=== PATIENT | male | born 1990 | race Two or more races ===

== ENCOUNTER 2021-04-13 21:06 | Emergency (ER) | payer MEDICAID ==
[~2021-04-13] VITALS: Ht 170.2 cm; Wt 90.7 kg
--- NOTE | 2021-04-13 22:17 | NUR ---
MD Gee in room to do MSE.
[2021-04-13] MEDS ORDERED: OXYC-128 PO (22:40)
[2021-04-13 22:45] VITALS: BP 142/88
--- NOTE | 2021-04-13 22:46 | NUR ---
Patient discharged to home in stable condition. Written and verbal after care instructions given. Patient verbalizes understanding of instructions. Stressed follow up or return to ER for worsening s/s. Patient ambulates with steady gait, V/S stable, given paper Rx, and left with all personal bleongings.
== END 2021-04-13 22:46 | disposition home or self-care (01) ==
LOC: ER 21:06
DX: J02.9 Acute pharyngitis, unspecified (principal); I10 Essential (primary) hypertension; Z88.3 Allergy status to other anti-infective agents
CPT/HCPCS: A4663

== ENCOUNTER 2022-04-30 23:46 | Inpatient (IN) | payer MEDICAID ==
[~2022-04-30] VITALS: Ht 167.6 cm; Wt 81.6 kg
[~2022-04-30 23:46] MED LIST: OXYC-128 PO
[2022-05-01] MEDS ORDERED: ETOMIDATE 20 MG/10 ML VIAL IV ONE
[2022-05-01] MEDS ORDERED: VANCOMYCIN IV 1,000 MG in IV DEXTROSE 5% 250 ML IV ONE ×2
[2022-05-01] MEDS ORDERED: IV NORMAL SALINE 1000 ML BAG IV ONE
[2022-05-01] MEDS ORDERED: ONDANSETRON 4 MG/2 ML VIAL IV ONE
[2022-05-01] MEDS ORDERED: CEFTRIAXONE 1 G in IV DEXTROSE 5% 50 ML IV ONE ×2
--- NOTE | 2022-05-01 | NUR ---
Dr. Durbin at bedside. NAD noted. MSE in progress.
--- NOTE | 2022-05-01 | NUR ---
Patient biba. A/Ox2.
[2022-05-01] MEDS ORDERED: VANCOMYCIN IV 200 ML ONE (00:12)
[2022-05-01] MEDS ORDERED: CEFTRIAXONE /D5W 50ML IVPB **ER PYXIS IV ONE (00:12)
[2022-05-01] MEDS ORDERED: ONDANSETRON 4 MG/2 ML VIAL ONE ×3 (00:13→13:26)
[2022-05-01] MEDS ORDERED: HYDROMORPHONE 1 MG/1 ML DISP.SYRIN IV ONE ×2 (00:30→02:00)
[2022-05-01] MEDS ORDERED: HYDROMORPHONE 1 MG/1 ML DISP.SYRIN ONE ×2 (00:34→04:00)
[2022-05-01] MEDS ORDERED: IV D5W-0.45% NS +20 KCL 1,000 ML IV ONE ×2 (00:42→00:45)
--- NOTE | 2022-05-01 01:00 | NUR ---
Girl friend at bedside.
[2022-05-01] MEDS ORDERED: IV D5 1/2 NS 1000 ML 1,000 ML IV PRN (01:15)
[2022-05-01] MEDS ORDERED: ONDANSETRON 4 MG/2 ML VIAL IV PRN (01:15)
[2022-05-01] MEDS ORDERED: ACETAMINOPHEN 325 MG TABLET PO PRN (01:15)
[2022-05-01] MEDS ORDERED: MAGNESIUM HYDROXIDE 30 ML LIQUID UDC PO PRN (01:15)
[2022-05-01 01:26] LABS: HEMATOCRIT 40.1 % (36.7-47.1); MEAN CORPUSCULAR HEMOGLOBIN 31.8 uug (23.8-33.4); MEAN CORPUSCULAR VOLUME 91.4 fL (73.0-96.2); PLATELET COUNT (AUTO) 220 K/uL (152-348)
[2022-05-01 01:27] LABS: CREATININE 1.4 mg/dL (0.6-1.3); POTASSIUM 3.4 mmol/L (3.5-5.1)
[2022-05-01 01:33] LABS: BILIRUBIN,DIRECT 0.1 mg/dL (0.0-0.2); BILIRUBIN,TOTAL 0.3 mg/dL (0.2-1.0); TOTAL PROTEIN, SERUM 6.8 g/dL (6.4-8.2)
--- NOTE | 2022-05-01 02:00 | NUR ---
Report given to Farhana DOVE.
[2022-05-01] MEDS: HYDROMORPHONE 1 MG/1 ML DISP.SYRIN IV PRN ×2 (04:05→08:10)
--- NOTE | 2022-05-01 05:50 | NUR ---
Notified by 3rd fl (Med Surg) unit that a bed is available for patient.
--- NOTE | 2022-05-01 06:15 | NUR ---
Pt. admitted to Med Surg room 322, under care of Dr. Tiwari. Belongs List completed Crystal DOVE aware of patients arrival.
[2022-05-01 06:30] VITALS: BP 164/86
--- NOTE | 2022-05-01 06:57 | NUR ---
Admitted to [facility] in stable condition. No distress noted. Splint noted on left arm. IV site intact. Pt able to make needs known. Kept NPO. Will endorse to day shift.
--- NOTE | 2022-05-01 09:57 | NUR ---
Patient brought down for surgery. Report given to Nalini DOVE of Surgical Unit. Consent signed.
[2022-05-01] MEDS ORDERED: FENTANYL CITRATE 100 MCG/2 ML AMPUL ONE (10:04)
[2022-05-01] MEDS ORDERED: HYDROMORPHONE 2 MG/1 ML DISP.SYRIN ONE (10:04)
[2022-05-01] MEDS ORDERED: MIDAZOLAM HCL 2 MG/2 ML VIAL ONE (10:04)
[2022-05-01] MEDS ORDERED: FAMOTIDINE. 20 MG/2 ML VIAL IV ONE (10:04)
[2022-05-01] MEDS ORDERED: ROCURONIUM BROMIDE 50 MG/5 ML VIAL ONE (10:05)
[2022-05-01] MEDS ORDERED: VANCOMYCIN 1000 MG VIAL ONE (11:09)
[2022-05-01] MEDS ORDERED: BUPIVACAINE/EPI PF 0.5% 10 ML VIAL ONE (11:09)
[2022-05-01] MEDS ORDERED: VANCOMYCIN IV 1,000 MG in IV DEXTROSE 5% 250 ML IV SCH (12:00)
[2022-05-01] MEDS ORDERED: GLYCOPYRROLATE 0.2 MG/ML VIAL ONE ×3 (13:11)
[2022-05-01] MEDS ORDERED: PROPOFOL 200 MG/20 ML BOTTLE ONE (13:11)
[2022-05-01] MEDS ORDERED: METOCLOPRAMIDE HCL 10 MG/2 ML VIAL ONE (13:11)
[2022-05-01] MEDS ORDERED: CEFAZOLIN 1 G VIAL ONE ×2 (13:11)
[2022-05-01] MEDS ORDERED: KETOROLAC TROMETHAMINE 30 MG INJ ONE ×2 (13:11)
[2022-05-01] MEDS ORDERED: NEOSTIGMINE METHYLSULFATE 10 MG/10 ML VIAL ONE (13:11)
[2022-05-01] MEDS ORDERED: LIDOCAINE-MPF 2% 5 ML VIAL ONE (13:11)
[2022-05-01] MEDS ORDERED: hydrALAZINE HCL 20 MG/1 ML VIAL ONE (13:22)
--- NOTE | 2022-05-01 13:57 | NUR ---
Patient back on unit.
[2022-05-01] MEDS: IV D5W-0.45% NS +20 KCL 1,000 ML IV PRN (14:13)
[2022-05-01] MEDS: VANCOMYCIN IV 1,000 MG in IV DEXTROSE 5% 250 ML IV SCH (14:13)
[2022-05-01 16:38] VITALS: BP 134/71
--- NOTE | 2022-05-01 16:54 | NUR ---
Patient awake from nap with complaints of nausea. Few episodes of vomiting, but patient feels well overall. Zofran given to patient for nausea and vomiting means. Patient's significant other at bed side. Vitals stable. No complaints of pain.
--- NOTE | 2022-05-01 18:25 | NUR ---
Patient tolerated care well throughout shift with minimal complaints of pain or distress. Nausea managed through medicinal interventions. Patient resting comfortably in bed with significant other at bed side. IV site patent and intact. Comfort measures provided. Surgical site of both left arm and right pinky managed with pain medication and ice at site. Bed left in lowest position with call light within reach. Will endorse information to PM nurse.
[2022-05-01 20:28] VITALS: BP 151/62
[2022-05-01] MEDS ORDERED: CEFTRIAXONE 2 G in IV DEXTROSE 5% 100 ML IV SCH (21:00)
[2022-05-01] MEDS: MORPHINE SULFATE 4 MG/1 ML DISP.SYRIN IV PRN (22:16)
[2022-05-02] MEDS: MORPHINE SULFATE 4 MG/1 ML DISP.SYRIN IV PRN (01:19)
[2022-05-02] MEDS: VANCOMYCIN IV 1,000 MG in IV DEXTROSE 5% 250 ML IV SCH (02:51)
[2022-05-02 04:00] VITALS: BP 168/65
[2022-05-02] MEDS ORDERED: CEFTRIAXONE 2 G in IV DEXTROSE 5% 100 ML IV SCH (04:00)
[2022-05-02] MEDS: HYDROMORPHONE 1 MG/1 ML DISP.SYRIN IV PRN ×3 (04:36→21:04)
[2022-05-02 07:09] LABS: HEMATOCRIT 40.5 % (36.7-47.1); MEAN CORPUSCULAR VOLUME 91.2 fL (73.0-96.2); PLATELET COUNT (AUTO) 175 K/uL (152-348)
[2022-05-02 07:38] LABS: CREATININE 0.9 mg/dL (0.6-1.3); MAGNESIUM 2.1 mg/dL (1.8-2.4); PHOSPHOROUS 2.2 mg/dL (2.5-4.9); POTASSIUM 3.8 mmol/L (3.5-5.1)
[2022-05-02] MEDS ORDERED: HYDROCODONE/APAP 10-325 MG TABLET PO PRN (07:45)
[2022-05-02] MEDS: IV D5W-0.45% NS +20 KCL 1,000 ML IV PRN ×2 (07:50→23:27)
[2022-05-02 12:11] VITALS: BP 180/96
[2022-05-02 12:20] VITALS: BP 152/84
[2022-05-02] MEDS ORDERED: NEUTRA PHOS PACKET PO ONE (16:00)
[2022-05-02 16:51] VITALS: BP 153/70
[2022-05-02 20:00] VITALS: BP 141/80
--- NOTE | 2022-05-02 21:20 | NUR ---
Pt complaining of 9/10 pain from the surgery. Administered Dilaudid as ordered. All needs attended. Will continue to monitor.
[2022-05-03] MEDS: HYDROMORPHONE 1 MG/1 ML DISP.SYRIN IV PRN ×4 (00:23→09:30)
[2022-05-03 04:00] VITALS: BP 153/93
[2022-05-03] MEDS ORDERED: METOPROLOL TARTRATE 25 MG TABLET PO SCH (09:00)
[2022-05-03 09:17] VITALS: BP 153/93
[2022-05-03] MEDS ORDERED: HYDR-3980 PO (10:18)
--- NOTE | 2022-05-03 12:11 | NUR ---
dc orders received noted and carried out,dc heplock per md orders,dc instruction and education given to the pt .pt said he will follow up with dr crenshaw in one week.pt left the facility via private car in stable condition
== END 2022-05-03 12:05 | disposition home or self-care (01) | DRG 315 ==
LOC: ER 05-01 00:17 → MEDSURG3 05-01 02:01
PROVIDERS: ADMIT Internal Medicine; ATTEND Internal Medicine
DX: S52.602B Unspecified fracture of lower end of left ulna, initial encounter for open fracture type I or II (principal); N17.0 Acute kidney failure with tubular necrosis; S52.502B Unspecified fracture of the lower end of left radius, initial encounter for open fracture type I or II; S62.616A Displaced fracture of proximal phalanx of right little finger, initial encounter for closed fracture; E87.6 Hypokalemia; Z20.822 Contact with and (suspected) exposure to COVID-19; V18.4XXA Pedal cycle driver injured in noncollision transport accident in traffic accident, initial encounter; Y93.89 Activity, other specified; Y92.89 Other specified places as the place of occurrence of the external cause
CPT/HCPCS: 36415; 73090; 73100; 73130; 73140; 83735; 84100; 85025; 85730; A4649; A4663; C1713; G0378; J0360; J0690; J0696; J1170; J1885; J2250; J2270; J2405; J2765; J3010; J3370; J3490; J7040; J7050

== ENCOUNTER 2025-06-09 20:40 | Emergency (ER) | payer MEDICAID ==
[~2025-06-09] VITALS: Ht 170.2 cm; Wt 83.9 kg
[~2025-06-09 20:40] MED LIST changes: +HYDR-3980 PO; -OXYC-128 PO
[2025-06-09] MEDS ORDERED: MORPHINE SULFATE 4 MG/1 ML DISP.SYRIN ONE ×2 (20:49→21:45)
[2025-06-09] MEDS: MORPHINE SULFATE 4 MG/1 ML DISP.SYRIN IV ONE ×2 (20:53→21:57)
[2025-06-09] MEDS ORDERED: KETOROLAC TROMETHAMINE 15 MG INJ IVP ONE (21:15)
[2025-06-09] MEDS ORDERED: CEFAZOLIN 1 G VIAL ONE (21:45)
[2025-06-09] MEDS: CEFAZOLIN 1 G in IV DEXTROSE 5% 50 ML IV ONE (21:58)
[2025-06-09 22:30] VITALS: BP 110/68
[2025-06-09] MEDS ORDERED: HYDROCODONE/APAP 10-325 MG TABLET ONE (22:54)
[2025-06-09] MEDS ORDERED: BACITRACIN ZINC OINT 15 GM TUBE ONE (22:54)
[2025-06-09] MEDS ORDERED: KETOROLAC TROMETHAMINE 15 MG INJ ONE (22:54)
[2025-06-09] MEDS: BACITRACIN ZINC OINT 15 GM TUBE TOP STA (23:07)
[2025-06-09] MEDS: KETOROLAC TROMETHAMINE 15 MG INJ IVP ONE (23:07)
[2025-06-09] MEDS: HYDROCODONE/APAP 10-325 MG TABLET PO ONE (23:07)
[2025-06-09] MEDS ORDERED: HYDR-3980 PO (23:13)
[2025-06-09] MEDS ORDERED: NAPR-1009 PO (23:13)
[2025-06-09] MEDS ORDERED: CEPH500C2 PO (23:13)
[2025-06-09 23:39] VITALS: BP 112/70; O2SAT 98
== END 2025-06-09 23:39 | disposition home or self-care (01) ==
LOC: ER 20:42
DX: S30.11XA Contusion of abdominal wall, initial encounter (principal); S50.812A Abrasion of left forearm, initial encounter; S30.811A Abrasion of abdominal wall, initial encounter; S40.212A Abrasion of left shoulder, initial encounter; S60.512A Abrasion of left hand, initial encounter; Z88.8 Allergy status to other drugs, medicaments and biological substances; V19.9XXA Pedal cyclist (driver) (passenger) injured in unspecified traffic accident, initial encounter; Y93.55 Activity, bike riding; Y92.89 Other specified places as the place of occurrence of the external cause; Y99.9 Unspecified external cause status
CPT/HCPCS: 99285; 96365; 70450; 96375; 71045; 73030; 73070; 73130; 96376; J1885; J0690; J2270 ×2; A4606; A4663